=== PATIENT | male | born 1950 | race Caucasian/White ===

== ENCOUNTER → 2018-10-21 | Day surgery (SDC) | payer MEDICARE ==
[~2018-10-21] MED LIST: AMITRIPTYLINE H25 MG PO; BACITRACIN 50,000 UNIT VIAL ONE; BUPIVACAINE HCL 0.5% INJ 30 ML VIAL INJ ONE; CLINDAMYCIN PHOS 900MG/ 50ML 50 ML IV ONE; DEXAMETHASONE SOD PHOS INJ 4 MG/ML VIAL ONE; FENTANYL CITRATE/PF 100MCG/2 ML INJ ONE; GABAPENTIN300 MG PO; INVOKANA PO; LIDOCAINE HCL 2% LOCAL INJ 5 ML SDV VIAL INJ ONE; LISINOPRIL2.5 MG PO; METOPROLOL SUC100 MG PEG; MIDAZOLAM HCL 2 MG/2 ML VIAL ONE; OMEPRAZOLE40 MG PO; ONDANSETRON HCL INJ 2MG/ML 2ML 2 MG/ML VIAL ONE; PROPOFOL IV EMULSION 10 MG/ML 20 ML VIAL ONE; SEVOFLURANE INHAL SOLN 250 ML PEN BTL ONE; SIMVASTATIN20 MG PO
[2018-10-21 12:00] LABS: BASOPHILS % 0.5 % (0.0-1.0); EOSINOPHILS # (AUTO) 0.1 (0.0-0.4); EOSINOPHILS % 2.1 % (0.0-6.0); HEMATOCRIT 41.8 % (38.2-49.6); HEMOGLOBIN 13.9 g/dL (14.0-18.0); LYMPHOCYTES # (AUTO) 1.1 (1.0-3.2); LYMPHOCYTES % 18.9 % (18.0-39.1); MEAN CORPUSCULAR HEMOGLOBIN 31.9 pg (28-32); MEAN CORPUSCULAR HGB CONC 33.3 g/dL (31-35); MEAN CORPUSCULAR VOLUME 95.9 fL (81-99); MONOCYTES # (AUTO) 0.5 (0.2-0.8); MONOCYTES % 8.1 % (4.4-11.3); NEUTROPHILS # (AUTO) 4.1 (2.1-6.9); NEUTROPHILS % 69.7 % (38.7-80.0); PLATELET COUNT 219 x10e3/uL (140-360); RED BLOOD COUNT 4.36 x10e6/uL (4.3-5.7); RED CELL DISTRIBUTION WIDTH 13.6 % (11.7-14.4)
[2018-10-21 12:10] LABS: INR 0.96; PROTHROMBIN TIME 13.3 seconds (11.9-14.5)
[2018-10-21 12:11] LABS: PARTIAL THROMBOPLASTIN TIME 33.2 seconds (23.8-35.5)
[2018-10-21 12:18] LABS: ANION GAP 15.6 mmol/L (8-16); BLOOD UREA NITROGEN 9 mg/dL (7-26); BUN/CREATININE RATIO 8 (6-25); CALCIUM 9.7 mg/dL (8.4-10.2); CARBON DIOXIDE 25 mmol/L (22-29); CHLORIDE 97 mmol/L (98-107); EST GLOMERULAR FILTRATION RATE > 60 ML/MIN (60-); GLUCOSE 135 mg/dL (74-118); POTASSIUM 3.6 mmol/L (3.5-5.1); SODIUM 134 mmol/L (136-145)
--- NOTE | 2018-10-21 12:27 | Diagnostic Imaging Report ---
EXAMINATION: CHEST 2 VIEWS INDICATION: Preop. Foot surgery. ^PRE-OP AMPUTATION SECOND DIGIT RIGHT FOOT ^[id number] ^1130 ^ACU 3 COMPARISON: None FINDINGS: TUBES and LINES: None. LUNGS: Lungs are well inflated. Lungs are clear. There is no evidence of pneumonia or pulmonary edema. PLEURA: No pleural effusion or pneumothorax. HEART AND MEDIASTINUM: The cardiomediastinal silhouette is unremarkable. BONES AND SOFT TISSUES: No acute osseous lesion. Soft tissues are unremarkable. Old appearing right lateral rib fractures. UPPER ABDOMEN: No free air under the diaphragm. IMPRESSION: No acute thoracic abnormality. Signed by: Dr. Fox Gomez M.D. on 10/21/2018 12:23 PM
[2018-10-21 14:30] VITALS: BP 163/86
--- NOTE | 2018-11-03 16:20 | Operative Report ---
DATE OF PROCEDURE: 10/21/2018 SURGEON: Litzy Miller DPM PREOPERATIVE DIAGNOSIS: Right 2nd digit osteomyelitis. POSTOPERATIVE DIAGNOSIS: Right 2nd digit osteomyelitis. PLANNED PROCEDURE: Right 2nd digit amputation. TOOL AND DIE MAKER: Litzy Miller DPM ANESTHESIA: General with a postoperative block consisting of 10 mL of 0.5% Marcaine plain. HEMOSTASIS: Pneumatic ankle tourniquet set at 250 mmHg for a total time of approximately 20 minutes. ESTIMATED BLOOD LOSS: Less than 10 mL. PATHOLOGY: Anaerobic and aerobic cultures, right 2nd digit sent for gross specimen. MATERIALS: 3-0 nylon. PROCEDURE NOTE: The patient was seen in the preoperative waiting room, where the correct procedure and site was identified. The patient was brought to the operating room and placed on the operating table in the supine position. General anesthesia was initiated. At this time, a well-padded pneumatic tourniquet was placed about the patient's right ankle. The right foot, ankle, and leg were then scrubbed, prepped, and draped in the usual aseptic manner. The right foot, ankle, and leg were exsanguinated with an Esmarch bandage and the pneumatic ankle tourniquet was inflated to 250 mmHg for a total time of approximately 20 minutes. Attention was directed to the distal aspect of the patient's right 2nd digit, where a deep probing ulceration was noted with bone exposed. The decision was made to proceed with a right 2nd digit amputation. A wound culture was taken upon incision to the distal aspect of the ulceration site. Next, utilizing a fresh blade, the two converging semi-elliptical incisions were made at the level of the 2nd metatarsophalangeal joint. The incision was carried through the subcutaneous tissue them from deep or underling structures, all vital neurovascular structures were retracted medially and laterally. The incision was carried down to the level of bone at the 2nd metatarsophalangeal joint. The distal aspect of the digit was grasped with a towel clamp. The 2nd metatarsophalangeal joint was easily identified and incised with a #15 blade and the digit was disarticulated and passed off the table for gross specimen. Next, utilizing bacitracin mixed with sterile saline, copious amounts of fluid were irrigated through the open wound. Next, the wound edges were prepped for closure by removing all dog-ears and debulking fat. The skin was reapproximated utilizing simple interrupted sutures of 3-0 nylon. The incision site was then dressed with Betadine-soaked Adaptic, 4x4s, Kerlix, [place] wrap, and a postop shoe. The patient tolerated procedure and anesthesia well. The patient was transferred to the postoperative recovery unit with vital signs stable and vascular status intact. The patient was monitored there for a short period time before being sent home with the following written and oral instructions. 1. Keep the dressing clean, dry, and intact. 2. The patient is to remain partial heel touch weightbearing in a postop shoe and to avoid excessive ambulation until being seen in the office. 3. The patient was given office number to contact us if any problems should arise. DEREK Galeano/INDU /[id number]
== END | disposition home or self-care (01) ==
LOC: OR 11:34
PROVIDERS: ATTEND Podiatrist Foot & Ankle Surgery
DX: M86.171 Other acute osteomyelitis, right ankle and foot (principal); H91.90 Unspecified hearing loss, unspecified ear; I10 Essential (primary) hypertension; E11.9 Type 2 diabetes mellitus without complications; K74.60 Unspecified cirrhosis of liver; K21.9 Gastro-esophageal reflux disease without esophagitis; Z88.0 Allergy status to penicillin; Z79.84 Long term (current) use of oral hypoglycemic drugs
CPT/HCPCS: 28820; 36415; 71046; 80048; 82948; 85025; 85610; 85730; 87071; 87075; 87186; 87205; 88305; 88311; 93005; J1100; J2001; J2250; J2405; J2704; 88304

== ENCOUNTER 2019-03-16 08:34 | Inpatient (IN) | payer MEDICARE ==
[~2019-03-16] VITALS: Ht 175.3 cm; Wt 77.6 kg
[~2019-03-16 08:34] MED LIST changes: -BACITRACIN 50,000 UNIT VIAL ONE; -BUPIVACAINE HCL 0.5% INJ 30 ML VIAL INJ ONE; -CLINDAMYCIN PHOS 900MG/ 50ML 50 ML IV ONE; -DEXAMETHASONE SOD PHOS INJ 4 MG/ML VIAL ONE; -FENTANYL CITRATE/PF 100MCG/2 ML INJ ONE; -LIDOCAINE HCL 2% LOCAL INJ 5 ML SDV VIAL INJ ONE; -MIDAZOLAM HCL 2 MG/2 ML VIAL ONE; -ONDANSETRON HCL INJ 2MG/ML 2ML 2 MG/ML VIAL ONE; -PROPOFOL IV EMULSION 10 MG/ML 20 ML VIAL ONE; -SEVOFLURANE INHAL SOLN 250 ML PEN BTL ONE
--- OUTSIDE RECORDS SUMMARY | 2019-03-16 08:36 | XMS REPORT ---
Author Author [facility] Address Unknown Phone Unavailable Care Team Providers Care Discharge Door Operator Name Role Phone Brisa GUPTA Unavailable Unavailable Payers Payer Name Policy Type Policy Number Effective Date Expiration Date Problems This patient has no known problems. Allergies, Adverse Reactions, Alerts Allergy Name Allergy Type Status Severity Reaction(s) Onset Date Inactive Date Treating Clinician Comments Penicillins DA Active [facility] 2017-08-04 00:00:00 Medications This patient has no known medications. Results Test Description Test Time Test Comments Text Results Atomic Results Result Comments CHEST 2 VIEWS 2018-10-21 12:23:00 [place] [address] Patient Name: WILEY DSOUZA MR #: [id number] : 1950 Age/Sex: 68/M Req #: [id number] Adm Physician: Ordered by: Brisa GUPTA DPM Report #: [id number] Location: OR Room/Bed: Procedure: [id number] DX/CHEST 2 VIEWS Exam Date: 10/21/18 Exam Time: 1130 REPORT STATUS: Signed EXAMINATION: CHEST 2 VIEWS INDICATION: Preop. Foot surgery. PRE-OP AMPUTATION SECOND DIGIT RIGHT FOOT [id number] 1130 ACU 3 COMPARISON: None FINDINGS: TUBES and LINES: None. LUNGS: Lungs are well inflated. Lungs are clear. There is no evidence of pneumonia or pulmonary edema. PLEURA: No pleural effusion or pneumothorax. HEART AND MEDIASTINUM: The cardiomediastinal silhouette is unremarkable. BONES AND SOFT TISSUES: No acute osseous lesion. Soft tissues are unremarkable. Old appearing right lateral rib fractures. UPPER ABDOMEN: No free air under the diaphragm. IMPRESSION: No acute thoracic abnormality. Signed by: Dr. Fox Gomez M.D. on 10/21/2018 12:23 PM Dictated By: FOX GOMEZ MD, MD 1223 Transcribed By: DEBBI on 10/21/18 1223 COPY TO: Brisa GUPTA DPM
[2019-03-16] MEDS ORDERED: SODIUM CHLORIDE 0.9% 1000ML 1,000 ML IV STA (08:57)
[2019-03-16] MEDS ORDERED: ONDANSETRON HCL INJ 2MG/ML 2ML 2 MG/ML VIAL IV PRN (09:00)
[2019-03-16 09:12] LABS: BASOPHILS % 0.7 % (0.0-1.0); EOSINOPHILS # (AUTO) 0.2 (0.0-0.4); EOSINOPHILS % 2.5 % (0.0-6.0); HEMATOCRIT 40.2 % (38.2-49.6); HEMOGLOBIN 13.5 g/dL (14.0-18.0); LYMPHOCYTES # (AUTO) 1.3 (1.0-3.2); LYMPHOCYTES % 21.2 % (18.0-39.1); MEAN CORPUSCULAR HEMOGLOBIN 33.2 pg (28-32); MEAN CORPUSCULAR HGB CONC 33.6 g/dL (31-35); MEAN CORPUSCULAR VOLUME 98.8 fL (81-99); MONOCYTES # (AUTO) 0.7 (0.2-0.8); MONOCYTES % 11.2 % (4.4-11.3); NEUTROPHILS # (AUTO) 3.8 (2.1-6.9); NEUTROPHILS % 62.9 % (38.7-80.0); PLATELET COUNT 272 x10e3/uL (140-360); RED BLOOD COUNT 4.07 x10e6/uL (4.3-5.7); RED CELL DISTRIBUTION WIDTH 13.1 % (11.7-14.4)
[2019-03-16 09:23] LABS: BILIRUBIN,URINE NEGATIVE (NEGATIVE); CLARITY,URINE CLEAR (CLEAR); COLOR,URINE YELLOW (YELLOW); KETONES,URINE NEGATIVE (NEGATIVE); LEUKOCYTE ESTERASE ,URINE NEGATIVE (NEGATIVE); NITRITE,URINE NEGATIVE (NEGATIVE); PROTEIN,URINE DIPSTICK NEGATIVE (NEGATIVE); URINE UROBILINOGEN 0.2 mg/dL (0.2 - 1)
[2019-03-16 09:24] LABS: INR 0.92; PROTHROMBIN TIME 12.9 seconds (11.9-14.5)
[2019-03-16 09:25] LABS: PARTIAL THROMBOPLASTIN TIME 33.2 seconds (23.8-35.5)
[2019-03-16] MEDS ORDERED: VANCOMYCIN 1GM/NS 250 ML 250 ML IV ONE (09:30)
[2019-03-16 09:33] LABS: ALANINE AMINOTRANSFERASE 21 IU/L (0-55); ALBUMIN/GLOBULIN RATIO 0.6 (0.8-2.0); ALKALINE PHOSPHATASE 106 IU/L (40-150); ANION GAP 13.5 mmol/L (8-16); BLOOD UREA NITROGEN 10 mg/dL (7-26); BUN/CREATININE RATIO 8 (6-25); CALCIUM 9.3 mg/dL (8.4-10.2); CARBON DIOXIDE 30 mmol/L (22-29); CHLORIDE 93 mmol/L (98-107); EST GLOMERULAR FILTRATION RATE > 60 ML/MIN (60-); GLUCOSE 130 mg/dL (74-118); POTASSIUM 3.5 mmol/L (3.5-5.1); SODIUM 133 mmol/L (136-145)
--- NOTE | 2019-03-16 09:41 | NUR ---
PT MOVED TO ROOM 9
--- NOTE | 2019-03-16 09:49 | NUR ---
DR Danielle ROONEY AT PT BEDSIDE
[2019-03-16 09:51] LABS: BACTERIA,URINE FEW /HPF; EPITHELIAL CELLS,URINE FEW /LPF
--- NOTE | 2019-03-16 09:51 | Diagnostic Imaging Report ---
Left knee, 3 views. History: Abscess. Findings: There is severe prepatellar focal soft tissue swelling. Bone mineralization is normal. There is no evidence of fracture or dislocation. There are no lytic or sclerotic lesions. Severe medial joint space narrowing is present. Osteophytes are present throughout all 3 compartments. IMPRESSION: Prepatellar focal soft tissue swelling may represent abscess. Left knee DJD is noted. Signed by: David Keane on 03/16/2019 9:48 AM
--- NOTE | 2019-03-16 10:21 | NUR ---
DR SANCHEZ AT PT BEDSIDE
--- NOTE | 2019-03-16 10:28 | History and Physical ---
CHIEF COMPLAINT: Swelling and tenderness of the left knee. PRIMARY CARE PHYSICIAN: Neil Durham DO. HISTORY OF PRESENT ILLNESS: The patient is a 68-year-old man. He has a history of diabetes. He takes insulin. Apparently, he scraped his knee about a week ago. He subsequently develops swelling and tenderness in the superficial aspect of the left knee. He notes pain and difficulty bending the knee, but does not complain of fevers. PAST MEDICAL HISTORY: 1. Diabetes. 2. The patient denies heart disease. 3. The patient denies asthma or lung disease. SOCIAL HISTORY: The patient is not an active smoker. He is not an active drinker. FAMILY HISTORY: Noncontributory. SURGICAL HISTORY: The patient has a history of two prior toe amputations on the right foot. ALLERGIES: NO KNOWN DRUG ALLERGIES. REVIEW OF SYSTEMS: No fever. No headache. No neck pain. He is not complaining of chest pain. He has no difficulty breathing. He has no nausea or vomiting. He has no leg edema. PHYSICAL EXAMINATION: VITAL SIGNS: Stable. HEENT: No facial swelling or erythema. The oropharynx is normal. LYMPHATIC: No submandibular, cervical, or supraclavicular adenopathy. CARDIAC: Regular rate and rhythm with a normal S1, S2. There are no murmurs or rubs. LUNGS: Auscultation of lungs shows clear breath sounds bilaterally. There is no wheezing. ABDOMEN: Soft, nontender. There is no rebound or guarding. EXTREMITIES: No leg edema. There is swelling and tenderness on the superficial aspect of the left knee. IMPRESSION: 1. Septic bursitis in the left knee. 2. Possible septic joint with sepsis, present on admission. 3. Diabetes. PLAN: 1. Begin antibiotics. 2. Orthopedic consultation. 3. Monitor and control blood sugars. 4. Review basic labs. MD MARTIN Schofield/INDU /[id number]
[2019-03-16] MEDS: MORPHINE SULFATE INJ 4 MG/ML INJ 1ML IV PRN (11:22)
[2019-03-16] MEDS ORDERED: GADOBENATE DIMEGLUMINE 1 ML IV ONE (11:51)
[2019-03-16 12:30] VITALS: BP 154/99
--- NOTE | 2019-03-16 12:30 | NUR ---
Received patient from ER via stretcher. AAOX3 to time, person, place. Respirations even and unlabored. Left knee red and warm to touch. Oriented patient to room. Instructed to use call light for assistance. Voiced understanding. Side rails upx2, call light within reach.
[2019-03-16 12:40] VITALS: BP 154/99
[2019-03-16] MEDS ORDERED: HYDRALAZINE HCL 20 MG/ML VIAL IV PRN (14:30)
--- NOTE | 2019-03-16 14:51 | Diagnostic Imaging Report ---
Left knee MRI with and without contrast. History: Knee injury. Fall. Osteomyelitis. Redness and swelling. Drainage Comparison: Radiographs 03/16/2019. Technique: Multiplanar multisequence MRI of the knee with and without intravenous contrast. 15 cc IV gadolinium contrast material was administered Findings: Medial compartment: Complex tear involving the posterior horn and body segments of the medial meniscus. Regions of full-thickness articular cartilage loss in the medial compartment with underlying bone marrow edema and subchondral cystic change. Peripheral marginal osteophytes. The medial collateral ligament complex is intact. Lateral compartment: Degeneration and free edge fraying of the lateral meniscus. Regions of near full-thickness articular cartilage loss in the lateral compartment. Peripheral marginal osteophytes. The lateral collateral ligament complex is intact. Intercondylar notch: Degeneration and scarring of the anterior cruciate ligament. The ACL and PCL are otherwise intact. Patellofemoral compartment: Articular cartilage fraying and fissuring in the patellofemoral compartment. Extensor mechanism: The quadriceps and patellar tendons are normal. Other findings: There is a joint effusion and synovitis. There is no subluxation or avascular necrosis. Vertically oriented nondisplaced anterior medial patellar fracture with associated bone marrow edema and soft tissue edema best seen on coronal image 6. 5.0 x 4.0 x 1.0 cm peripherally enhancing fluid signal intensity collection along the anterior aspect of the knee at the level of the patella with associated skin thickening and abnormal contrast enhancement. There may be a small sinus tract extending to the skin surface anteriorly. This could be due to an evolving hematoma or possibly an abscess in the appropriate clinical context. No underlying focal bone marrow edema or cortical destruction is seen to suggest osteomyelitis. IMPRESSION: Vertically oriented nondisplaced anterior medial patellar fracture with associated bone marrow edema and soft tissue edema 5.0 x 4.0 x 1.0 cm peripherally enhancing fluid signal intensity collection along the anterior aspect of the knee at the level of the patella with associated skin thickening and abnormal contrast enhancement. There may be a small sinus tract extending to the skin surface anteriorly. This could be due to an evolving hematoma or possibly an abscess in the appropriate clinical context. No underlying focal bone marrow edema or cortical destruction is seen to suggest osteomyelitis. Complex medial meniscus tear with associated advanced degenerative arthrosis in the medial compartment of the knee. Signed by: Dr. Fox Gomez M.D. on 03/16/2019 2:48 PM
--- NOTE | 2019-03-16 15:50 | NUR ---
Notified of MRI results. Orders received. States "I will see patient tomorrow"
[2019-03-16 15:53] VITALS: BP 146/101
--- NOTE | 2019-03-16 16:00 | NUR ---
FSBG 69. [place] juice given. Will continue to monitor.
--- NOTE | 2019-03-16 16:02 | NUR ---
Patient states " I am a social drinker. I drink 1 beer only when i am with my friends"
--- NOTE | 2019-03-16 16:20 | NUR ---
Gordon cyr and left knee immobilizer placed as ordered
[2019-03-16] MEDS: GABAPENTIN 300 MG CAP PO SCH ×2 (16:37→20:35)
--- NOTE | 2019-03-16 16:40 | NUR ---
FSBG 101
[2019-03-16] MEDS: HYDROCODONE/APAP 5MG-325MG TAB PO PRN (17:50)
--- NOTE | 2019-03-16 19:10 | NUR ---
Report given to oncoming nurse of patient's status. Resting in bed. No s/s of acute distress noted. Side rails upx2, call light within reach.
[2019-03-16 20:00] VITALS: BP 136/83
[2019-03-16 20:35] VITALS: BP 136/83
[2019-03-16] MEDS: SIMVASTATIN 20 MG TAB PO SCH (20:35)
[2019-03-16] MEDS: AMITRIPTYLINE HCL 25 MG TAB PO SCH (20:35)
--- NOTE | 2019-03-16 20:35 | NUR ---
PATIENT IS AOX3, NO SIGNS OF DISTRESS NOTED. LEFT LEG IMMOBILIZER IN PLACE, COMPLAINTS OF MINIMAL PAIN. BED IS LOCKED AND IN LOWEST POSITION POSSIBLE, BOTH SIDE RAILS ARE UP, CALL LIGHT WITHIN EASY REACH, WILL CONTINUE TO MONITOR.
[2019-03-16] MEDS ORDERED: ZOLPIDEM TARTRATE 5 MG TAB PO PRN (21:00)
[2019-03-17] VITALS (8 sets, daily range): BP systolic 122–174; BP diastolic 60–95
[2019-03-17 05:18] LABS: BASOPHILS % 0.5 % (0.0-1.0); EOSINOPHILS # (AUTO) 0.2 (0.0-0.4); EOSINOPHILS % 2.6 % (0.0-6.0); HEMATOCRIT 36.7 % (38.2-49.6); LYMPHOCYTES # (AUTO) 1.4 (1.0-3.2); LYMPHOCYTES % 18.2 % (18.0-39.1); MEAN CORPUSCULAR HEMOGLOBIN 32.9 pg (28-32); MEAN CORPUSCULAR HGB CONC 32.7 g/dL (31-35); MEAN CORPUSCULAR VOLUME 100.5 fL (81-99); MONOCYTES # (AUTO) 0.9 (0.2-0.8); MONOCYTES % 11.4 % (4.4-11.3); NEUTROPHILS # (AUTO) 5.1 (2.1-6.9); NEUTROPHILS % 66.1 % (38.7-80.0); PLATELET COUNT 260 x10e3/uL (140-360); RED BLOOD COUNT 3.65 x10e6/uL (4.3-5.7); RED CELL DISTRIBUTION WIDTH 13.1 % (11.7-14.4)
[2019-03-17 05:43] LABS: ALANINE AMINOTRANSFERASE 15 IU/L (0-55); ALBUMIN 2.6 g/dL (3.5-5.0); ALBUMIN/GLOBULIN RATIO 0.6 (0.8-2.0); ALKALINE PHOSPHATASE 107 IU/L (40-150); ANION GAP 10.7 mmol/L (8-16); BLOOD UREA NITROGEN 8 mg/dL (7-26); BUN/CREATININE RATIO 8 (6-25); CALCIUM 9.1 mg/dL (8.4-10.2); CARBON DIOXIDE 31 mmol/L (22-29); CHLORIDE 93 mmol/L (98-107); CREATININE, SERUM 0.95 mg/dL (0.72-1.25); EST GLOMERULAR FILTRATION RATE > 60 ML/MIN (60-); GLUCOSE 83 mg/dL (74-118); POTASSIUM 3.7 mmol/L (3.5-5.1); SODIUM 131 mmol/L (136-145)
--- NOTE | 2019-03-17 08:23 | Progress Note ---
DATE: SUBJECTIVE: The patient still has swelling and pain in the knee. He is in his soft knee brace. PHYSICAL EXAMINATION: VITAL SIGNS: He is afebrile. Vital signs are stable. HEENT: Shows no facial swelling or erythema. CARDIAC: Reveals regular rate and rhythm with a normal S1 and S2. There are no murmurs or rubs heard. LUNGS: Auscultation of lungs reveals clear breath sounds bilaterally. There is no wheezing. ABDOMEN: Soft and nontender. There is no rebound or guarding. EXTREMITIES: Swollen prepatellar bursa with surrounding erythema. He has tenderness over the knee. RADIOGRAPHIC DATA: MRI shows a nondisplaced anterior medial patella fracture. There is a fluid collection on the anterior aspect of the knee at the level of the patella with skin thickening and contrast enhancement. There is also degenerative changes of the meniscus and medial compartment of the knee. IMPRESSION: 1. Septic bursitis in the left knee with sepsis, present on admission. 2. Nondisplaced patella fracture. 3. Diabetes. 4. Diabetic neuropathy. 5. Hypertension. PLAN: 1. The patient will be continued on IV antibiotics. 2. Discuss intraoperative incision and drainage with Orthopedics. 3. Continue to monitor blood sugars. 4. Continue home medications for diabetic neuropathy. Juan Cannon MD [facility]/INDU /[id number]
[2019-03-17] MEDS: METOPROLOL SUCCINATE 50 MG TAB XL PO SCH (08:42)
[2019-03-17] MEDS: PANTOPRAZOLE SOD 40 MG TABEC PO SCH (08:44)
[2019-03-17] MEDS: LISINOPRIL 2.5 MG TAB PO SCH (08:44)
[2019-03-17] MEDS: GABAPENTIN 300 MG CAP PO SCH ×3 (08:44→21:05)
[2019-03-17] MEDS: VANCOMYCIN 1GM/NS 250 ML 250 ML IV SCH (08:44)
[2019-03-17] MEDS: HYDROCODONE/APAP 5MG-325MG TAB PO PRN ×2 (10:37→16:50)
[2019-03-17] MEDS ORDERED: FENTANYL CITRATE/PF 100MCG/2 ML INJ ONE (12:34)
[2019-03-17] MEDS: SIMVASTATIN 20 MG TAB PO SCH (21:05)
[2019-03-17] MEDS: AMITRIPTYLINE HCL 25 MG TAB PO SCH (21:05)
--- NOTE | 2019-03-17 21:05 | NUR ---
PATIENT IS IN STABLE CONDITION AND IS AOX3, NO SIGNS OF DISTRESS NOTED. LEFT LEG IMMOBILIZER IN PLACE, COMPLAINTS OF LITTLE PAIN. PATIENT ALSO VOICED UNDERSTANDING OF NPO AFTER MIDNIGHT FOR PROCEDURE IN THE MORNING. BED IS LOCKED AND IN LOWEST POSITION POSSIBLE, BOTH SIDE RAILS ARE UP, CALL LIGHT WITHIN EASY REACH, WILL CONTINUE TO MONITOR.
[2019-03-18] VITALS (8 sets, daily range): BP systolic 108–157; BP diastolic 65–97
[2019-03-18] MEDS: SODIUM CHLORIDE 0.9% 1000ML 1,000 ML IV SCH ×3 (04:58→19:59)
--- NOTE | 2019-03-18 06:20 | NUR ---
PATIENT HAS BEEN TAKEN TO OR FOR PROCEDURE.
[2019-03-18] MEDS ORDERED: BACITRACIN 50,000 UNIT VIAL ONE (06:23)
[2019-03-18] MEDS ORDERED: CLINDAMYCIN PHOS 900MG/ 50ML 50 ML IV ONE (07:30)
--- NOTE | 2019-03-18 08:56 | NUR ---
patient back from procedure, arousal with voice, not in any distress. Left knee dressing intact, foot pump ON, on IV FLUIDS , BED ALARM on, call light in reach, keep monitoring
[2019-03-18] MEDS ORDERED: ACETAMINOPHEN/CODEINE 300MG - 30MG TAB PO PRN (09:15)
[2019-03-18] MEDS: VANCOMYCIN 1GM/NS 250 ML 250 ML IV SCH (09:25)
[2019-03-18] MEDS: HYDROCODONE/APAP 5MG-325MG TAB PO PRN (11:16)
[2019-03-18] MEDS: GABAPENTIN 300 MG CAP PO SCH ×3 (12:09→20:23)
[2019-03-18] MEDS: PANTOPRAZOLE SOD 40 MG TABEC PO SCH (12:10)
[2019-03-18] MEDS: METOPROLOL SUCCINATE 50 MG TAB XL PO SCH (12:10)
[2019-03-18] MEDS: LISINOPRIL 2.5 MG TAB PO SCH (12:10)
--- NOTE | 2019-03-18 12:51 | NUR ---
EDUCATED ABOUT IMM, SIGNED, FILED IN CHART, WITH COPY LEFT WITH FAMILY AT BEDSIDE.
[2019-03-18] MEDS ORDERED: MIDAZOLAM HCL 2 MG/2 ML VIAL ONE (13:06)
[2019-03-18] MEDS ORDERED: FENTANYL CITRATE/PF 100MCG/2 ML INJ ONE (13:06)
[2019-03-18] MEDS ORDERED: PROPOFOL IV EMULSION 10 MG/ML 20 ML VIAL ONE (14:28)
[2019-03-18] MEDS ORDERED: LIDOCAINE HCL 2% LOCAL INJ 5 ML SDV VIAL INJ ONE (14:28)
[2019-03-18] MEDS ORDERED: SEVOFLURANE INHAL SOLN 250 ML PEN BTL ONE (14:28)
[2019-03-18] MEDS ORDERED: DEXAMETHASONE SOD PHOS INJ 4 MG/ML VIAL ONE (14:28)
[2019-03-18] MEDS ORDERED: ONDANSETRON HCL INJ 2MG/ML 2ML 2 MG/ML VIAL ONE (14:28)
[2019-03-18] MEDS: MORPHINE SULFATE INJ 4 MG/ML INJ 1ML IV PRN (16:36)
[2019-03-18] MEDS: SIMVASTATIN 20 MG TAB PO SCH (20:23)
[2019-03-18] MEDS: AMITRIPTYLINE HCL 25 MG TAB PO SCH (20:23)
[2019-03-19] VITALS (8 sets, daily range): BP systolic 107–168; BP diastolic 67–98
[2019-03-19] MEDS: SODIUM CHLORIDE 0.9% 1000ML 1,000 ML IV SCH (05:39)
--- NOTE | 2019-03-19 07:05 | NUR ---
RECEIVED PATIENT RESTING IN BED NO SIGNS OF DISTRESS. BED LOW, WHEELS LOCKED, SIDE RAILS X2. CALL LIGHT IN REACH WILL CONTINUE TO MONITOR PATIENT.
[2019-03-19] MEDS: VANCOMYCIN 1GM/NS 250 ML 250 ML IV SCH (08:22)
[2019-03-19] MEDS: GABAPENTIN 300 MG CAP PO SCH ×3 (08:22→20:05)
[2019-03-19] MEDS: METOPROLOL SUCCINATE 50 MG TAB XL PO SCH (08:23)
[2019-03-19] MEDS: LISINOPRIL 2.5 MG TAB PO SCH (08:23)
[2019-03-19] MEDS: PANTOPRAZOLE SOD 40 MG TABEC PO SCH (08:23)
[2019-03-19] MEDS: MORPHINE SULFATE INJ 4 MG/ML INJ 1ML IV PRN (08:33)
--- NOTE | 2019-03-19 10:46 | NUR ---
PATIENT A/O X3, EVEN RESPIRATIONS ON RA. LUNG SOUNDS CLEAR TO AUSCULTATION. BOWEL SOUNDS X4. LEFT KNEE DRESSING INTACT NO DRAINAGE. TOÑO WRAP AND IMMOBILIZER IN PLACE. RIGHT SILAS HOSE. PATIENT AMBULATES WITH STANDBY ASSIST. RIGHT AC 18 GAUGE AND RIGHT FA 20 GAUGE WITH NS @ 75 CC/HR. PAIN 8/10 LEFT KNEE, PRN MORPHINE GIVEN THIS AM. CALL LIGHT IN REACH WILL CONTINUE TO MONITOR PATIENT.
[2019-03-19] MEDS: HYDROCODONE/APAP 5MG-325MG TAB PO PRN (11:36)
--- NOTE | 2019-03-19 13:20 | Progress Note ---
DATE: SUBJECTIVE: The patient underwent an incision and drainage. He still has his knee wrapped. He has less pain. He is not having fevers. PHYSICAL EXAMINATION: VITAL SIGNS: The patient is afebrile. The vital signs are stable. HEENT: Shows no facial swelling or erythema. The oropharynx is normal. LYMPHATIC: Shows no submandibular, cervical, or supraclavicular adenopathy. CARDIAC: Reveals regular rate and rhythm with normal S1 and S2. There are no murmurs or rubs heard. LUNGS: Auscultation of lungs shows clear breath sounds bilaterally. There is no wheezing. ABDOMEN: Soft, nontender. There is no rebound or guarding. EXTREMITIES: Shows a bandaged left knee. There is also a knee immobilizer. IMPRESSION: 1. Septic bursitis of the left knee with sepsis present on admission. 2. Nondisplaced patella fracture. 3. Diabetes. 4. Diabetic neuropathy. PLAN: 1. Continue wound care. Orthopedics is scheduled to re-dress the wound tomorrow. 2. ID consultation to determine duration of antibiotic therapy. 3. Continue to monitor blood sugars. Juan Cannon MD [facility]/INDU /[id number]
[2019-03-19] MEDS ORDERED: TETANUS/DIPHTHERIA TOX ADULT 0.5 ML SYR IM NR (15:00)
--- NOTE | 2019-03-19 16:37 | Consultation ---
DATE OF CONSULTATION: 03/19/2019 INFECTIOUS DISEASE CONSULT REASON FOR CONSULTATION: Antibiotics management and recommendation on the duration of treatment. Thank you, Dr. Cannon, for asking me to see this patient, who was admitted through the emergency department. HISTORY OF PRESENT ILLNESS: The patient is a 68-year-old man, referred for antibiotics management and recommendation on duration of treatment. The patient presented to the emergency department on 03/16/2019 with progressive pain and swelling of the anterior left knee with purulent drainage. There was no fever or chills. The patient fell in his workshop, sustaining an abrasion of the left knee a few days prior. The next day, the patient developed progressive bulge of the anterior left knee. Subsequently, the bulge developed yellowish head and began draining a purulent fluid mixed with scant blood. MRI of the left knee later showed peripherally enhancing fluid collection of the anterior left knee and nondisplaced fracture of the left patella. The patient has been evaluated by the Orthopedic Service and successfully underwent incision and drainage of infected hematoma of the left knee. PAST MEDICAL HISTORY: Diabetes mellitus type 2 with peripheral neuropathy and diabetic foot infection, and hypertension. PAST SURGICAL HISTORY: Amputation of the right 2nd and 3rd toes. ALLERGIES: PENICILLIN, WHICH CAUSED A RASH. MEDICATIONS: See MAR. The current antibiotic is vancomycin 1 g IV piggyback q.24 hours. IMMUNIZATION: The patient does not recall receiving tetanus-diphtheria vaccine in the past 10 years. FAMILY HISTORY: Noncontributory. SOCIAL HISTORY: No alcohol, tobacco, or recreational drug use. REVIEW OF SYSTEMS: As per history of present illness. The patient reports good pain control. There is no fever, chills, cough, shortness of breath, nausea, vomiting, diarrhea, abdominal pain, and dysuria. PHYSICAL EXAMINATION: GENERAL: No acute distress. VITAL SIGNS: T-max 97.8, pulse rate 88, respiratory rate 18, blood pressure 107/67, and weight 168 pounds. HEENT: Normocephalic. There is no icterus or injection of the conjunctivae. There is no ear or nasal discharge. Moist oral mucosa. No pharyngeal erythema or exudate. NECK: Supple. No meningismus. LUNGS: Clear to auscultation bilaterally. HEART: Normal S1 and S2. Regular. ABDOMEN: Soft and nontender. EXTREMITIES: The left knee is immobilized and left lower extremity dressing in place. There is +edema of the left lower extremity. There is missing left 2nd and 3rd toes. There is no edema, clubbing, or cyanosis of the rest of the extremities. The dorsalis pedis and posterior tibial pulses are palpable. SKIN: No rash. HELIX COIL WINDER: Awake, alert, and oriented to person, place, and time. There is a decreased sensation to monofilament test of the feet. Nonfocal. LABORATORY AND DIAGNOSTICS: 03/17/2019 WBC 7740, hemoglobin 12, platelet 260,000, neutrophils 66.1, lymphocytes 18.2, monocytes 11.4, eosinophils 2.6, and basophils 0.5. BUN 8, creatinine 0.95, and blood glucose 217. Left knee wound culture is growing Staphylococcus aureus, but the sensitivity is pending. Blood culture showed no growth. Left lower extremity venous Doppler ultrasound showed partial thrombosis of the left greater saphenous vein. IMPRESSION: 1. Infected hematoma of the left knee due to Staphylococcus aureus, present on admission. 2. Left patellar fracture from fall at home, present on admission. 3. Greater saphenous vein thromboses. 4. Diabetes mellitus type 2 with peripheral neuropathy, uncontrolled. 5. Hypertension, controlled. PLAN: 1. Administer tetanus-diphtheria vaccine today. Defer decision on anticoagulation to admitting physician and the Orthopedic Service. Expect a minimum of 10 to 14 days of antibiotics from the date of surgery. 2. Await wound isolate sensitivity and check vancomycin level. 3. Glycemic control. MD TERESA Rider/INDU /[id number]
[2019-03-19] MEDS: AMITRIPTYLINE HCL 25 MG TAB PO SCH (20:04)
[2019-03-19] MEDS: SIMVASTATIN 20 MG TAB PO SCH (20:05)
[2019-03-20] VITALS (8 sets, daily range): BP systolic 102–150; BP diastolic 62–98
--- NOTE | 2019-03-20 07:11 | NUR ---
RECEIVED PATIENT AWAKE IN BED NO SIGNS OF DISTRESS. BED LOW, WHEELS LOCKED, SIDE RAILS X2. CALL LIGHT IN REACH WILL CONTINUE TO MONITOR PATIENT.
[2019-03-20] MEDS: GABAPENTIN 300 MG CAP PO SCH ×3 (07:52→20:07)
[2019-03-20] MEDS: METOPROLOL SUCCINATE 50 MG TAB XL PO SCH (07:52)
[2019-03-20] MEDS: VANCOMYCIN 1GM/NS 250 ML 250 ML IV SCH (07:52)
[2019-03-20] MEDS: LISINOPRIL 2.5 MG TAB PO SCH (07:52)
[2019-03-20] MEDS: PANTOPRAZOLE SOD 40 MG TABEC PO SCH (07:52)
[2019-03-20] MEDS: MORPHINE SULFATE INJ 4 MG/ML INJ 1ML IV PRN (07:56)
--- NOTE | 2019-03-20 10:05 | NUR ---
PATIENT A/O X3, EVEN RESPIRATIONS ON RA. LUNG SOUNDS CLEAR TO AUSCULTATION. BOWEL SOUNDS X4. LEFT KNEE DRESSING INTACT NO DRAINAGE. TOÑO WRAP AND IMMOBILIZER IN PLACE. RIGHT SILAS HOSE. PATIENT AMBULATES WITH STANDBY ASSIST. RIGHT AC 18 GAUGE AND RIGHT FA [address] PAIN 7/10 LEFT KNEE, PRN MORPHINE GIVEN THIS AM. CALL LIGHT IN REACH WILL CONTINUE TO MONITOR PATIENT.
[2019-03-20] MEDS: RIVAROXABAN 10 MG TABLET PO SCH ×2 (11:01→16:41)
--- NOTE | 2019-03-20 11:34 | NUR ---
DR. SANCHEZ AT BEDSIDE REMOVING LEFT KNEE DRAIN. LEFT KNEE COVERED WITH 4X4 AND KERLIX. LEFT SILAS HOSE AND IMMOBILIZER APPLIED.
--- NOTE | 2019-03-20 12:09 | Progress Note ---
DATE: SUBJECTIVE: The patient feels better. He was seen by Infectious Disease yesterday. PHYSICAL EXAMINATION: VITAL SIGNS: Stable. HEENT: Shows no facial swelling or erythema. CARDIAC: Reveals regular rate and rhythm with normal S1 and S2. There are no murmurs or rubs heard. LUNGS: Auscultation of lungs reveals clear breath sounds bilaterally. There is no wheezing. ABDOMEN: Soft, nontender. There is no rebound or guarding. EXTREMITIES: Show no leg edema or calf tenderness. There is no cyanosis or clubbing. SKIN: Shows no rashes. NEUROLOGICAL: Shows no focal abnormalities. IMPRESSION: 1. Superinfected patellar bursa. 2. Nondisplaced patella fracture. 3. Diabetes. PLAN: 1. Orthopedics will be by to change the dressings today. 2. Continue antibiotics. 3. Discuss DVT prophylaxis with Orthopedic surgery. 4. Monitor and control blood sugars. MD MARTIN Schofield/INDU /[id number]
[2019-03-20] MEDS: HYDROCODONE/APAP 5MG-325MG TAB PO PRN (20:07)
[2019-03-20] MEDS: AMITRIPTYLINE HCL 25 MG TAB PO SCH (20:07)
[2019-03-20] MEDS: SIMVASTATIN 20 MG TAB PO SCH (20:07)
[2019-03-21] VITALS (10 sets, daily range): BP systolic 121–167; BP diastolic 65–87
[2019-03-21] MEDS: LISINOPRIL 2.5 MG TAB PO SCH (09:03)
[2019-03-21] MEDS: GABAPENTIN 300 MG CAP PO SCH ×3 (09:03→21:22)
[2019-03-21] MEDS: VANCOMYCIN 1GM/NS 250 ML 250 ML IV SCH ×2 (09:03→21:20)
[2019-03-21] MEDS: PANTOPRAZOLE SOD 40 MG TABEC PO SCH (09:04)
[2019-03-21] MEDS: METOPROLOL SUCCINATE 50 MG TAB XL PO SCH (09:04)
--- NOTE | 2019-03-21 09:40 | NUR ---
EDUCATED ABOUT IMM, SIGNED, FILED IN CHART, WITH COPY LEFT WITH FAMILY AT BEDSIDE.
[2019-03-21] MEDS: HYDROCODONE/APAP 5MG-325MG TAB PO PRN (09:44)
[2019-03-21] MEDS: MORPHINE SULFATE INJ 4 MG/ML INJ 1ML IV PRN (12:36)
[2019-03-21] MEDS ORDERED: DEXTROSE 50% SYRINGE 50 ML IV PRN (13:45)
--- NOTE | 2019-03-21 16:05 | Progress Note ---
DATE: SUBJECTIVE: The patient has no new complaints. He has less pain. He is not having fevers. Orthopedics removed his drain and changed his dressing yesterday. PHYSICAL EXAMINATION: VITAL SIGNS: The patient is afebrile. The vital signs are stable. HEENT: Shows no facial swelling or erythema. CARDIAC: Reveals regular rate and rhythm with normal S1, S2. There are no murmurs or rubs heard. LUNGS: Auscultation of lungs reveals clear breath sounds bilaterally. There is no wheezing. ABDOMEN: Soft, nontender. There is no rebound or guarding. EXTREMITIES: Examination of the extremities shows the wound is bandaged and there is a knee immobilizer. IMPRESSION: 1. Septic bursitis. 2. Diabetes. 3. Nondisplaced patella fracture. PLAN: 1. Continue IV antibiotics. Hopefully, the patient can be switched to p.o. antibiotics and discharged home within the next several days. 2. Continue deep venous thrombosis prophylaxis. 3. Monitor and control blood sugars. Juan Cannon MD [facility]/INDU /[id number]
[2019-03-21] MEDS: INSULIN REGULAR, HUMAN 100 UNIT/1 ML 3ML VIAL SQ SCH ×2 (16:30→21:00)
[2019-03-21] MEDS: RIVAROXABAN 10 MG TABLET PO SCH (17:16)
--- NOTE | 2019-03-21 19:30 | NUR ---
Patient received lying in bed. AAO x 3. Patient had no complaints of pain. No signs of respiratory distress. Knee immobilizer to left knee in place. Fall precautions implemented. Patient instructed to call for assistance when needed. Call light within reach.
[2019-03-21] MEDS: AMITRIPTYLINE HCL 25 MG TAB PO SCH (21:22)
[2019-03-21] MEDS: SIMVASTATIN 20 MG TAB PO SCH (21:22)
[2019-03-22] VITALS: BP 154/77
[2019-03-22 04:00] VITALS: BP 151/76
[2019-03-22] MEDS: MORPHINE SULFATE INJ 4 MG/ML INJ 1ML IV PRN (06:27)
--- NOTE | 2019-03-22 06:28 | NUR ---
Patient complained of IV inserted in right AC (18 G) being uncomfortable. IV removed with old tip intact. Patient tolerated well. Patient still has vascular access on Rt FA 20G.
--- NOTE | 2019-03-22 06:41 | NUR ---
Shift report given to oncoming nurse regarding patient's status.
[2019-03-22 07:56] VITALS: BP 140/89
[2019-03-22 08:24] VITALS: BP 140/89
[2019-03-22] MEDS: METOPROLOL SUCCINATE 50 MG TAB XL PO SCH (08:39)
[2019-03-22] MEDS: GABAPENTIN 300 MG CAP PO SCH (08:39)
[2019-03-22] MEDS: LISINOPRIL 2.5 MG TAB PO SCH (08:39)
[2019-03-22] MEDS: VANCOMYCIN 1GM/NS 250 ML 250 ML IV SCH (08:39)
[2019-03-22] MEDS: PANTOPRAZOLE SOD 40 MG TABEC PO SCH (08:39)
[2019-03-22] MEDS: INSULIN REGULAR, HUMAN 100 UNIT/1 ML 3ML VIAL SQ SCH ×2 (08:40→12:28)
[2019-03-22] MEDS ORDERED: ONDANSETRON HCL 4 MG ORAL DISINTEGRATING TAB PO PRN (09:15)
[2019-03-22 12:11] VITALS: BP 142/80
--- NOTE | 2019-03-22 18:46 | Discharge Summary ---
DISCHARGE DIAGNOSIS: 1. Septic prepatellar bursitis with sepsis, present on admission. 2. Nondisplaced patella fracture. 3. Diabetes. 4. Diabetic neuropathy. 5. Hypertension. DISCHARGE MEDICATIONS: 1. Minocycline 100 mg 1 p.o. b.i.d. for 10 days. 2. Xarelto 10 mg p.o. daily. 3. Tylenol No. 3 one p.o. t.i.d. p.r.n. 4. Amitriptyline 300 mg p.o. at bedtime. 5. Gabapentin 300 mg p.o. t.i.d. 6. Invokana. 7. Lisinopril 2.5 mg p.o. daily. 8. Metoprolol ER 100 mg p.o. daily. 9. Omeprazole 40 mg p.o. daily. 10. Simvastatin 20 mg p.o. daily. CONSULTING PHYSICIANS: 1. Dr. Chowdhury of orthopedics. 2. Dr. Dumont of Infectious Disease. OPERATIVE PROCEDURES: The patient had an intraoperative incision and drainage with a drain placement. HISTORY OF PRESENT ILLNESS: The patient is a 68-year-old man. He has a history of diabetes and diabetic neuropathy. He apparently scraped his knee about a week ago. He subsequently developed swelling and tenderness in the superficial aspect of his left knee. HOSPITAL COURSE: The patient was admitted. He had a tender and erythematous prepatellar bursa. He did not have elevated white count. He was started on antibiotics. An MRI was done that showed a nondisplaced patella fracture. Orthopedics recommended an incision and drainage with a drain placement. This was performed. The patient tolerated it well. The patient was placed in a knee immobilizer. He had Xarelto for DVT prophylaxis. His blood pressure was controlled with his home medications. At the time of discharge, he felt much better and was eager to go home. DISPOSITION: Discharged home. He may follow up with Dr. Neil Durham of [facility] and Dr. Chowdhury of orthopedics. Juan Cannon MD [facility]/MARYAL /[id number] cc: Neil Durham DO
--- NOTE | 2019-03-24 11:19 | Operative Report ---
DATE OF PROCEDURE: 03/18/2019 SURGEON: Jose Chowdhury MD PREOPERATIVE DIAGNOSES: 1. Infected left prepatellar hematoma diagnosis. 2. Possible open fracture of the patella. POSTOPERATIVE DIAGNOSIS: Infected prepatellar hematoma. OPERATIONS AND PROCEDURE PERFORMED: 1. The patient underwent an irrigation and debridement of the infected prepatellar hematoma. 2. Exploration of the left patella fracture surgical. DATABASE SECURITY EXPERT: None. ANESTHESIA: General endotracheal intubation anesthesia. IV FLUIDS: Per the anesthesia record BRIEF DESCRIPTION OF THE PATIENT'S OPERATIVE PROCEDURE: Mr. Devine was taken to the operating room, placed in supine position on the operating table. Following induction of general anesthesia as well as endotracheal intubation, the patient's left lower extremity was examined under anesthesia. Examination of the knee demonstrated enlargement of the anterior surface of the knee joint. The patient had significant erythema about the knee. There were several small less than 1 cm compromises of the anterior surface and skin of the knee joint that was draining serous fluid. The patient's lower extremity was prepped and draped in standard surgical fashion. The case was begun by creating an incision overlying the anterior surface of the knee joint. This incision was carried through skin only. As subcutaneous tissues were entered, purulent fluid was extravasated from the wound. Cultures were immediately taken. Full-thickness skin flaps were elevated both medially and laterally. The bursal tissue was resected both with blunt and sharp dissection. Devitalized tissue was also debrided at this time with both sharp and blunt dissection. The patella retinaculum was evaluated and found to be intact. There was no communication between the patella fracture and the infected hematoma. This wound was copiously irrigated with 3 L of bacitracin impregnated normal saline. Followed by 3 L of regular normal saline in a pulse lavage fashion. A [place] drain was placed in the bed of the wound and tunneled through the skin medially. The wound was then closed in a multilayer fashion. Sterile dressings were applied and a knee immobilizer was applied to the lower extremity. The patient was then awakened and taken to the postanesthesia care unit in stable condition. Jose Chowdhury MD [facility]BR/MODL /[id number]
== END 2019-03-22 12:32 | disposition home or self-care (01) | DRG 854 ==
LOC: ER 08:34 → ERHOLD 09:59 → MED/SURG2 12:35
PROVIDERS: ADMIT Internal Medicine Critical Care Medicine; ATTEND Internal Medicine Critical Care Medicine
PROC: 0S9D00Z Drainage of Left Knee Joint with Drainage Device, Open Approach (ICD-10-PCS; 2019-03-18)
PROC: 0MBP0ZZ Excision of Left Knee Bursa and Ligament, Open Approach (ICD-10-PCS; principal; 2019-03-18 07:11)
DX: A41.9 Sepsis, unspecified organism (principal); S82.092A Other fracture of left patella, initial encounter for closed fracture; L03.116 Cellulitis of left lower limb; I82.4Z2 Acute embolism and thrombosis of unspecified deep veins of left distal lower extremity; M71.9 Bursopathy, unspecified; I10 Essential (primary) hypertension; W18.30XA Fall on same level, unspecified, initial encounter; Y92.008 Other place in unspecified non-institutional (private) residence as the place of occurrence of the external cause; E11.42 Type 2 diabetes mellitus with diabetic polyneuropathy; Z79.4 Long term (current) use of insulin
CPT/HCPCS: 36415; 80053; 80202; 81001; 82948; 83605; 85025; 85610; 85730; 86140; 87040; 87071; 87075; 87086; 87186; 87205; 90714; 93005; 93971; 96372; 99284; J1100; J1817; J2001; J2250; J2270; J2405; J3010; J3370; J7030

== ENCOUNTER 2019-06-17 09:53 | Outpatient (RCR) | payer MEDICARE | END 2019-06-25 | LOC: PT 09:53 | PROVIDERS: ATTEND Specialist | DX: S82.002A Unspecified fracture of left patella, initial encounter for closed fracture (principal); M25.562 Pain in left knee; M25.662 Stiffness of left knee, not elsewhere classified; M62.81 Muscle weakness (generalized); Z91.81 History of falling ==